=== PATIENT | female | born 1990 | race African-American/Black ===

== ENCOUNTER 2017-06-17 00:06 | Emergency (ER) | payer MEDICARE, OTHER ==
[~2017-06-17] VITALS: Ht 154.9 cm; Wt 61.4 kg
[2017-06-17] MEDS ORDERED: IBUPROFEN 600 MG TABLET PO ONE (02:00)
[2017-06-17 02:05] VITALS: BP 118/56
== END 2017-06-17 02:13 | disposition home or self-care (01) ==
LOC: EMS 00:07
DX: R07.89 Other chest pain (principal); I10 Essential (primary) hypertension; F12.90 Cannabis use, unspecified, uncomplicated; F17.210 Nicotine dependence, cigarettes, uncomplicated
CPT/HCPCS: 93005; 99283; 99406

== ENCOUNTER 2018-09-16 16:15 | Emergency (ER) | payer OTHER ==
[~2018-09-16] VITALS: Ht 157.5 cm; Wt 65.9 kg
[2018-09-16] MEDS ORDERED: ACETAMINOPHEN 500 MG TABLET PO ONE (17:15)
[2018-09-16 18:14] VITALS: BP 113/67
== END 2018-09-16 18:18 | disposition home or self-care (01) ==
LOC: EMS 16:15
DX: M54.9 Dorsalgia, unspecified (principal); R03.0 Elevated blood-pressure reading, without diagnosis of hypertension; F17.210 Nicotine dependence, cigarettes, uncomplicated; F12.90 Cannabis use, unspecified, uncomplicated; Z98.890 Other specified postprocedural states
CPT/HCPCS: 99284